=== PATIENT | female | born 1955 | race Caucasian/White ===

== ENCOUNTER 2022-06-18 11:53 | Outpatient (CLI) | payer MEDICARE ==
[2022-06-18] MEDS ORDERED: Magnevist 469MG/ML 20 ML VIAL ONE (14:10)
== END 2022-06-18 11:54 | disposition home or self-care (01) ==
LOC: CSHMRI 11:53
PROVIDERS: ATTEND Neurological Surgery
DX: R26.9 Unspecified abnormalities of gait and mobility (principal); R27.0 Ataxia, unspecified; M50.30 Other cervical disc degeneration, unspecified cervical region; M47.16 Other spondylosis with myelopathy, lumbar region; M47.812 Spondylosis without myelopathy or radiculopathy, cervical region; M47.816 Spondylosis without myelopathy or radiculopathy, lumbar region; M48.061 Spinal stenosis, lumbar region without neurogenic claudication
CPT/HCPCS: 70553; 72141; 72148; 82565

== ENCOUNTER 2023-02-14 12:47 | Outpatient (CLI) | payer MEDICARE ==
[~2023-02-14 12:47] MED LIST: Magnevist 469MG/ML 20 ML VIAL ONE
== END 2023-02-14 12:48 | disposition home or self-care (01) ==
LOC: CSHMRI 12:47
PROVIDERS: ATTEND Psychiatry & Neurology Neurology
DX: M48.061 Spinal stenosis, lumbar region without neurogenic claudication (principal); M47.816 Spondylosis without myelopathy or radiculopathy, lumbar region; M47.817 Spondylosis without myelopathy or radiculopathy, lumbosacral region
CPT/HCPCS: 72158; A9579